=== PATIENT | male | born 1995 | race Caucasian/White ===

== ENCOUNTER 2021-09-02 13:17 | Emergency (ER) | payer OTHER ==
[~2021-09-02] VITALS: Ht 170.2 cm; Wt 74.8 kg
[2021-09-02 14:11] LABS: BASOPHILS % 0.2 % (0.0-1.0); EOSINOPHILS % 0.7 % (0.0-6.0); HEMATOCRIT 32.8 % (38.2-49.6); HEMOGLOBIN 11.4 g/dL (14.0-18.0); LYMPHOCYTES # (AUTO) 0.9 (1.0-3.2); LYMPHOCYTES % 21.7 % (18.0-39.1); MEAN CORPUSCULAR HEMOGLOBIN 33.2 pg (28-32); MEAN CORPUSCULAR HGB CONC 34.8 g/dL (31-35); MEAN CORPUSCULAR VOLUME 95.6 fL (81-99); MONOCYTES # (AUTO) 0.4 (0.2-0.8); MONOCYTES % 8.1 % (4.4-11.3); NEUTROPHILS % 69.1 % (38.7-80.0); RED BLOOD COUNT 3.43 x10e6/uL (4.3-5.7)
[2021-09-02 14:17] LABS: PLATELET COUNT 87 x10e3/uL (140-360)
[2021-09-02 14:31] LABS: ALBUMIN 3.8 g/dL (3.5-5.0); ALBUMIN/GLOBULIN RATIO 1.5 (0.8-2.0); ANION GAP 13.8 mmol/L (8-16); CALCIUM 8.6 mg/dL (8.4-10.2); CREATININE, SERUM 0.8 mg/dL (0.72-1.25); POTASSIUM 3.8 mmol/L (3.5-5.1)
[2021-09-02 14:32] LABS: ABG HCO3 31 mmol/L (22-26); ABG PCO2 48 mmHg (35-45); ABG PH 7.41 (7.35-7.45); ABG PO2 62 mmHg (80-105); ABG TCO2 32
[2021-09-02 14:33] LABS: SALICYLATE < 5.0 mg/dL (0-30)
[2021-09-02 14:41] LABS: CREATINE KINASE MB 1.7 ng/mL (0-5.0)
[2021-09-02 14:53] LABS: AMPHETAMINES SCREEN,URINE NEGATIVE (NEGATIVE); PHENCYCLIDINE SCREEN,URINE NEGATIVE (NEGATIVE)
[2021-09-02 14:54] LABS: BENZODIAZEPINES SCREEN,URINE NEGATIVE (NEGATIVE)
[2021-09-02 15:28] VITALS: BP 118/74
== END 2021-09-02 15:30 | disposition home or self-care (01) ==
LOC: ER 13:29
DX: T40.1X1A Poisoning by heroin, accidental (unintentional), initial encounter (principal); R94.31 Abnormal electrocardiogram [ECG] [EKG]
CPT/HCPCS: 36415; 71045; 80053; 80307; 80320; 80329; 82550; 82553; 82805; 84484; 85025; 93005; 99284